=== PATIENT | female | born 1960 | race Caucasian/White ===

== ENCOUNTER → 2017-10-18 | Outpatient (CLI) | payer BC ==
[~2017-10-18] MED LIST: ADJUSTABLE COMM1 MIS; AMLO10TA2 PO; AMLO5TAB22 PO; BENA25TA8 PO; COZA50TA PO; CPMMACHINE; DIPH25TA31 PO; EMPA1TAB PO; EXEN1INJ SQ; FENO160T PO; GABA400C5 PO; GLIM2TAB PO; GLIM4TAB PO; GLUCTAB PO; HYDR-2768 PO; HYDR25TA5 PO; K-TA10TA5 PO; LEVO50TA4 PO; LOSA100T PO; METF1000 PO; POTA10TA2 PO; PRED50TA PO; RANI150 PO; SIMV10TA PO; SIMV20 PO; TRAD5TAB PO; VITA2000 PO; WALKER WHEELS/F1 MIS
== END ==
LOC: CPRE 09:44
PROVIDERS: ATTEND Orthopaedic Surgery
DX: Z01.818 Encounter for other preprocedural examination (principal); M17.12 Unilateral primary osteoarthritis, left knee

== ENCOUNTER 2017-11-03 05:30 | Inpatient (IN) | payer BC ==
[~2017-11-03] VITALS: Ht 162.6 cm; Wt 102.0 kg
[~2017-11-03 05:30] MED LIST changes: -ADJUSTABLE COMM1 MIS; -AMLO5TAB22 PO; -BENA25TA8 PO; -COZA50TA PO; -CPMMACHINE; -GLIM2TAB PO; -GLUCTAB PO; -HYDR-2768 PO; -K-TA10TA5 PO; -PRED50TA PO; -RANI150 PO; -SIMV20 PO; -TRAD5TAB PO; -WALKER WHEELS/F1 MIS
[2017-11-03] MEDS ORDERED: CHLORHEXIDINE GLUCONATE 4% SOLN 120 ML BTL TOPICAL SCH (06:00)
[2017-11-03] MEDS ORDERED: TRANEXAMIC ACID INJ 1,020 MG in SODIUM CHLORIDE 0.9% INJ 100 ML IV SCH ×2 (06:00→12:00)
[2017-11-03] MEDS ORDERED: ROPIVACAINE PERI-ARTICULAR INJECTION. P-ARTICULR SCH ×5 (06:00)
[2017-11-03] MEDS ORDERED: DEXAMETHASONE SOD PHOS 20 MG/5 ML VIAL IV PUSH ONE (06:00)
[2017-11-03] MEDS ORDERED: POVIDONE IODINE 7.5% SCRUB 118 ML BOTTLE TOPICAL SCH (06:00)
[2017-11-03] MEDS ORDERED: SODIUM CHLORID 0.9% 500 ML IV PRN (06:15)
[2017-11-03] MEDS ORDERED: METOPROLOL TARTRATE 25 MG TAB PO PRN (06:15)
[2017-11-03] MEDS ORDERED: POVIDONE IODINE 5% (ANTISEPSIS KIT) 4 APPLICATIONS EACH NARE PRN (06:15)
[2017-11-03] MEDS ORDERED: LACTATED RINGER'S 1000 ML IV PRN (06:15)
[2017-11-03] MEDS ORDERED: INSULIN HUMAN REGULAR 1,000 UNITS/10 ML VIAL SQ PRN (06:15)
[2017-11-03] MEDS ORDERED: CHLORHEXIDINE GLUCONATE 2 % 1 PACK (2 CLOTHS) TOPICAL PRN (06:15)
[2017-11-03] MEDS ORDERED: ceFAZolin 2 GM PREMIX 50 ML ONE (06:39)
[2017-11-03] MEDS ORDERED: PROPOFOL 500 MG/50 ML INJ 0 ML ONE (06:43)
--- NOTE | 2017-11-03 07:04 | HHI.DCPOC ---
Discharge Care Plan Diagnosis: (1) Primary localized osteoarthrosis, lower leg (2) Status post total knee replacement, left Your Health Problems Are: Difficulty with ADL Goals to Promote Your Health * To prevent worsening of your condition and complications * To maintain your health at the optimal level Directions to Meet Your Goals Take your medications as prescribed Follow your dietary instruction Follow activity as directed Keep your appointments as scheduled Take your immunizations and boosters as scheduled If your symptoms worsen call your PCP, if no PCP go to Urgent Care Center or Emergency Room Smoking is Dangerous to Your Health. Avoid second hand smoke Call the 24-hour hour crisis hotline for domestic abuse at Tim Mathur Nov 03, 2017 07:04
--- NOTE | 2017-11-03 07:06 | HHI.FF ---
Face to Face Verification Diagnosis: (1) Primary localized osteoarthrosis, lower leg (2) Status post total knee replacement, left Physical Therapy Gait training, Transfer training, bed to chair Knee: Total knee Left LE Weight Bearing: WB as tolerated Left LE Range of Motion: Active ROM Nursing Nursing: Jus myers Dressing Changes: Do not change dressing Additional Instructions First dressing change in the office. I have seen patient Marleni Haines on 11/03/17. My clinical findings support the need for the requested home health care services because: Limited ability to care for self High risk of falls I certify that my clinical findings support that this patient is homebound because: Post-op weakness Unsteady gait/balance Tim Mathur Nov 03, 2017 07:06
[2017-11-03] MEDS ORDERED: CPMMACHINE (07:07)
[2017-11-03] MEDS ORDERED: ADJUSTABLE COMM1 MIS (07:07)
[2017-11-03] MEDS ORDERED: WALKER WHEELS/F1 MIS (07:07)
[2017-11-03] MEDS ORDERED: ceFAZolin 2 GM PREMIX 50 ML IV SCH (07:15)
[2017-11-03] MEDS ORDERED: PROPOFOL 200 MG/20 ML AMP ONE (07:24)
[2017-11-03] MEDS ORDERED: BUPIVACAINE PF 0.75% DEX-WATER INJ 2 ML AMP ONE (07:46)
[2017-11-03] MEDS ORDERED: GENTAMICIN SULFATE 80 MG/2 ML VIAL ONE (08:30)
[2017-11-03] MEDS: VANCOMYCIN 1 GM/200 ML PREMIX IV SCH ×2 (08:50→19:22)
[2017-11-03] MEDS ORDERED: BUPIVACAINE LIPOSOME PF 1.3% 20 ML VIAL ONE (09:59)
[2017-11-03] MEDS ORDERED: BUPIVACAINE HCL PF 0.5% 30 ML VIAL ONE (10:04)
[2017-11-03] MEDS ORDERED: oxyCODONE/ACETAMINOPHEN 5 MG/325 MG TAB PO PRN ×3 (10:15→20:30)
[2017-11-03] MEDS ORDERED: MAGNESIUM HYDROXIDE SUSP 30 ML CUP PO PRN (10:15)
[2017-11-03] MEDS ORDERED: ALUMINUM/MAGNESIUM/SIMETH 30 ML CUP PO PRN (10:15)
[2017-11-03] MEDS ORDERED: MORPHINE SULFATE 4 MG/ML INJ IV PUSH PRN (10:15)
[2017-11-03] MEDS ORDERED: diphenhydrAMINE HCL 50 MG/ML VIAL IV PUSH PRN (10:15)
[2017-11-03] MEDS ORDERED: NALOXONE HCL 0.4 MG/ML AMP IV PUSH PRN (10:15)
[2017-11-03] MEDS ORDERED: BISACODYL 10 MG SUPP RECTAL PRN (10:15)
--- NOTE | 2017-11-03 10:18 | PD.OP ---
cc: Peter Crawford MD Operative Report Date of Surgery: Nov 03, 2017 Preoperative Diagnosis: Left knee severe osteoarthritis Postoperative Diagnosis: Same Procedure: Left total knee arthroplasty Anesthesia: Spinal and adductor canal block Surgeon: Peter Crawford Business Development Recruiter(s): DONELL Gage The surgical procedure was assisted by my Advanced Registered Nurse Practitioner. My MANAGER PSYCHOLOGY presence was necessary throughout this case for the manipulation and positioning of the surgical extremity. My MANAGER PSYCHOLOGY was assisting me throughout the duration of this procedure. The skill set of an Advance Registered Nurse Practitioner was medically necessary to complete this procedure. During the surgical case, the assembler surgical garment was working at the back table and the Advance Registered Nurse Practitioner was directly assisting me. Operation and Findings: IMPLANTS: DePuy Attune: Patella: size 32. Femur, posterior stabilized size 5. Tibia, rotating platform size 4. Tibial insert, rotating platform, posterior stabilized size 5 mm thickness. ESTIMATED BLOOD LOSS: 75 cc TOURNIQUET TIME: 39 minutes at 250 mmHg pressure. JUSTIFICATION FOR PROCEDURE: The patient has end-stage osteoarthritis to the knee. There is an attached conservative measures pathway form in the chart that describes the nonoperative measures that were undertaken prior to consideration of surgical management. The patient understood the risks and benefits of surgical management. See my office notes for further details PROCEDURE: The patient was brought back to the operative theatre. Adequate anesthesia was obtained. The patient received intravenous vancomycin and Ancef. The patient was given a test dose of the Ancef by the anesthesiologist without reaction. The lower extremity was prepped and draped in the usual sterile fashion.The leg was exsanguinated, the tourniquet was raised. A standard anterior incision was performed followed by medial parapatellar arthrotomy was performed. End-stage arthritis was identified. Osteotomy of the patella was performed. We drilled holes for the patella. We trialed the patella component. We placed an intramedullary guide into the distal femur. We ultimately resected 11 mm off of the distal femur in 5 degrees of valgus. The remnants of the ACL and PCL were resected. Osteotomy of the proximal tibia was performed, resecting 5 mm off of the medial side. This was done with 3 degrees of posterior slope using an extramedullary guide. The distal end of the guide was placed in the mid aspect of the ankle. The femur was sized, and four chamfer cuts were completed in 3 of external rotation. We then cut the central box in the distal femur to replace the PCL. We resected the remnants of the menisci and removed osteophytes off of the femur and tibia. We then trialed the knee. We punched the tibia for the keel, and then used standard technique to cement in components. Excess cement was removed. We trialed the knee again and the final polyethylene thickness was chosen to provide extension to 0 degrees, and flexion of 140 degrees to gravity. The ligaments were appropriately balanced. Lateral release was necessary to obtain excellent patellofemoral tracking. The tourniquet was released and adequate hemostasis was obtained. An intra- articular injection of a ropivacaine cocktail was injected. The posterior knee was inspected for excess cement, which was removed. The final polyethylene was put into position after thorough irrigation. We then closed deep fascia with a #2 Stratafix followed by skin with 2-0 Vicryl followed by Dermabond dressing. Postop plan is to weight-bear as tolerated. DVT prophylaxis will be performed with SCDs, YASMEEN alejandro, early mobilization, and Lovenox followed by aspirin. Peter Crawford MD Nov 03, 2017 10:18
[2017-11-03] MEDS: SODIUM CHLOR 0.9% 1000 ML INJ 1,000 ML IV SCH ×2 (11:00→20:14)
[2017-11-03] MEDS ORDERED: Post-op Orders (for Pharmacy) XX ONE (11:00)
[2017-11-03] MEDS ORDERED: DO NOT ADM ANY ANTICOAGULANT DRUGS PRN (11:00)
[2017-11-03] MEDS ORDERED: MIDAZOLAM HCL 2 MG/2 ML VIAL ONE (11:08)
[2017-11-03] MEDS ORDERED: *MEPERIDINE 25 MG INJ VIAL PERIprocedural Use ONLY ONE (11:17)
[2017-11-03] MEDS ORDERED: ONDANSETRON ODT 4 MG TAB SL PRN (11:30)
--- NOTE | 2017-11-03 11:36 | RADRPT ---
EXAM DATE: 11/03/2017 11:32 AM EDT AGE/SEX: 57 years / Female INDICATIONS: Post-op left total knee replacement. CLINICAL DATA: This is the patient's initial encounter. Patient reports that signs and symptoms have been present for 1 day and indicates a pain score of 0/10. MEDICAL/SURGICAL HISTORY: None. None. COMPARISON: No prior exams available for comparison. FINDINGS: The patient is post left knee arthroplasty. Orthopedic hardware is in excellent position. Alignment i s good. CONCLUSION: Orthopedic hardware in excellent position. Electronically signed by: Tim Alexandra MD 11/03/2017 11:35 AM EDT
[2017-11-03] MEDS: GABAPENTIN 400 MG CAP PO SCH ×2 (13:00→17:55)
--- NOTE | 2017-11-03 13:11 | PD.CONS ---
HPI Service [facility] Consult Requested By Dr. Crawford Reason for Consult Opinion recommendation patient's diabetes mellitus, hypertension and hyperlipidemia Primary Care Physician Dwayne Ritchie MD Diagnoses: History of Present Illness 57-year-old white female with a history of hypothyroidism, hypertension, diabetes mellitus who has had long-term history of left knee pain despite conservative treatment electively underwent a left total knee arthroplasty with orthopedic surgery Dr. Crawford today. She states her blood sugars are usually adequately controlled at home. She also states her blood pressures adequately controlled at home on medication. She denies a history of constipation. She denies a history of blood in the stools or black tarry stools. She states that there is some left knee discomfort at this time otherwise no other complaints. Review of Systems Constitutional: DENIES: Fatigue, Fever, Chills, Change in appetite Endocrine: DENIES: Heat/cold intolerance Eyes: DENIES: Blurred vision, Eye pain, Vision loss Ears, nose, mouth, throat: DENIES: Hearing loss, Nasal discharge, Throat pain, Ear Pain, Sinus Pain Respiratory: DENIES: Cough, Shortness of breath Cardiovascular: DENIES: Chest pain, Palpitations, Dyspnea on Exertion, Lower Extremity Edema Gastrointestinal: DENIES: Abdominal pain, Black stools, Bloody stools, Constipation, Diarrhea, Nausea, Vomiting Genitourinary: DENIES: Dysuria Musculoskeletal: COMPLAINS OF: Joint pain (Left knee pain as described), DENIES : Muscle aches, Stiffness Integumentary: DENIES: Rash Hematologic/lymphatic: DENIES: Bruising, Lymphadenopathy Immunologic/allergic: DENIES: Eczema Neurologic: DENIES: Headache, Localized weakness, Paresthesias Psychiatric: DENIES: Anxiety, Depression, Suicidal Ideation Past Family Social History Allergies: Coded Allergies: hydrocodone (Verified Allergy, Severe, Swelling, 11/03/17) penicillin G (Verified Allergy, Intermediate, Rash, 11/03/17) Past Medical History Hypothyroidism Hypertension Diabetes mellitus type 2 Neuropathy Past Surgical History Hysterectomy Appendectomy Left meniscus surgery Reported Medications Acetaminophen/diphenhydramine 1 capsule p.o. nightly Abdomen little pain 10 mg p.o. daily Vitamin D3 2000 units p.o. daily Exenatide 2 mg SQ Wednesday sq. Wednesday injection Fenofibrate 160 mg p.o. daily Gabapentin 400 mg p.o. 3 times daily Glimepiride 4 mg p.o. twice daily HCTZ 25 mg p.o. daily Levothyroxine 50 MCG's p.o. daily Losartan 100 mg p.o. daily Metformin 1000 mg p.o. twice daily PC Potassium chloride 10 mEq p.o. twice daily Simvastatin 10 mg p.o. nightly Family History Noncontributory Social History Does not smoke cigarettes, does not drink alcohol Physical Exam Vital Signs Vital Signs Date Time Temp Pulse Resp B/P (MAP) Pulse Ox O2 Delivery O2 Flow Rate FiO2 11/03/17 10:58 97.8 80 16 120/60 (80) 95 Room Air 11/03/17 06:25 99.1 74 20 143/60 (87) 97 Physical Exam GENERAL: This is a well-nourished, well-developed patient, in no apparent distress. SKIN: No rashes, ecchymoses or lesions. Cool and dry. HEAD: Atraumatic. Normocephalic. No temporal or scalp tenderness. EYES: Pupils equal round and reactive. Extraocular motions intact. No scleral icterus. No injection or drainage. ENT: Nose without bleeding, purulent drainage or septal hematoma. NECK: Trachea midline. No JVD or lymphadenopathy. Supple, nontender, no meningeal signs. CARDIOVASCULAR: Regular rate and rhythm RESPIRATORY: Clear to auscultation. Breath sounds equal bilaterally. No wheezes , rales, or rhonchi. GASTROINTESTINAL: Abdomen soft, non-tender, nondistended. No hepato-splenomegaly , or palpable masses. No guarding. MUSCULOSKELETAL: Extremities without clubbing, cyanosis, or edema. Left knee bandage clean dry intact on CPM machine NEUROLOGICAL: Awake and alert to person place time situation. Cranial nerves II through XII intact. Motor and sensory grossly within normal limits. Normal speech. Assessment and Plan Assessment and Plan 1. Status post left total knee arthroplasty continue postoperative care, pain control, physical therapy per orthopedic surgery, Dr. Crawford. 2. Hypothyroidism- Resume levothyroxine 3. Hypertension, chronic essential resume home amlodipine and losartan. 4. DVT prophylaxis risks and benefits of anticoagulation discussed with patient today. Initiate Lovenox per orthopedic surgery 5. Diabetes mellitus type 2- blood sugar monitoring with sliding scale insulin , resume metformin and glimepiride, further regulations based on blood sugar trends 6. History of diabetic Neuropathy resume gabapentin Thank you for this consultation Delia Corley MD Nov 03, 2017 13:11
[2017-11-03] MEDS ORDERED: GLUCAGON 1 MG/ML VIAL OTHER PRN (13:15)
[2017-11-03] MEDS ORDERED: ENALAPRILAT 1.25 MG/ML VIAL IV PUSH PRN (13:15)
[2017-11-03] MEDS ORDERED: DEXTROSE 50% IN WATER 50 ML VIAL(D50) IV PUSH PRN (13:15)
[2017-11-03] MEDS ORDERED: *morphine SULFATE 4 MG/ML PERIprocedure ONLY ONE (13:32)
[2017-11-03] MEDS ORDERED: PROPOFOL 200 MG/20 ML AMP IV ONE (13:32)
[2017-11-03] MEDS ORDERED: DEXAMETHASONE SOD PHOS 4 MG/ML VIAL IV ONE (13:32)
[2017-11-03] MEDS ORDERED: LIDOCAINE HCL 1% PF 5 ML SYRINGE OTHER ONE (13:32)
[2017-11-03] MEDS: INSULIN ASPART SUPPLEMENTAL SCALE SQ SCH ×2 (17:00→21:00)
[2017-11-03 17:15] VITALS: BP 108/59; PULSE 86; RESP 18; TEMP 97.7; O2SAT 92
[2017-11-03] MEDS: GLIMEPIRIDE 4 MG TAB PO SCH (17:55)
[2017-11-03] MEDS: metFORMIN HCL 500 MG TAB PO SCH (17:55)
[2017-11-03 19:52] VITALS: BP 123/63; PULSE 82; RESP 18; TEMP 98.1; O2SAT 92
[2017-11-03] MEDS: oxyCODONE/ACETAMINOPHEN 10 MG/325 MG TAB PO PRN (21:45)
[2017-11-03] MEDS: ZOLPIDEM TARTRATE 5 MG TAB PO PRN (21:46)
[2017-11-03] MEDS: POTASSIUM CHLORIDE 10 MEQ CONTROLLED RELEASE TAB PO SCH (21:46)
[2017-11-03] MEDS: PRAVASTATIN SOD 20 MG TAB PO SCH (21:46)
[2017-11-03 23:25] VITALS: BP 127/58; PULSE 83; RESP 18; TEMP 98.2; O2SAT 92
[2017-11-04] MEDS: oxyCODONE/ACETAMINOPHEN 10 MG/325 MG TAB PO PRN ×5 (02:35→23:44)
[2017-11-04 04:09] VITALS: BP 107/57; PULSE 74; RESP 18; TEMP 97.6; O2SAT 93
[2017-11-04] MEDS: SODIUM CHLOR 0.9% 1000 ML INJ 1,000 ML IV SCH ×2 (05:32→16:14)
[2017-11-04] MEDS: LEVOTHYROXINE SODIUM 50 MCG TAB PO SCH (05:36)
[2017-11-04] MEDS: VANCOMYCIN 1 GM/200 ML PREMIX IV SCH (06:40)
[2017-11-04 07:24] LABS: HEMATOCRIT 31.9 % (35.0-46.0); HEMOGLOBIN 10.5 GM/DL (11.6-15.3); MEAN CORPUSCULAR HEMOGLOBIN 27.9 PG (27.0-34.0); MEAN CORPUSCULAR HGB CONC 32.9 % (32.0-36.0); MEAN PLATELET VOLUME 10.6 FL (7.0-11.0); PLATELET COUNT 358 TH/MM3 (150-450); RED BLOOD COUNT 3.75 MIL/MM3 (4.00-5.30); RED CELL DISTRIBUTION WIDTH 13.4 % (11.6-17.2); WHITE BLOOD COUNT 11.2 TH/MM3 (4.0-11.0)
[2017-11-04] MEDS ORDERED: DEXAMETHASONE SOD PHOS 20 MG/5 ML VIAL IV ONE (07:45)
[2017-11-04 08:00] VITALS: BP 104/57; PULSE 69; RESP 18; TEMP 97.8; O2SAT 95
[2017-11-04] MEDS: GLIMEPIRIDE 4 MG TAB PO SCH ×2 (08:34→18:25)
[2017-11-04] MEDS: metFORMIN HCL 500 MG TAB PO SCH ×2 (08:35→18:22)
[2017-11-04] MEDS: FENOFIBRATE 145 MG TAB PO SCH (08:35)
[2017-11-04] MEDS: GABAPENTIN 400 MG CAP PO SCH ×3 (08:35→18:23)
[2017-11-04] MEDS: POTASSIUM CHLORIDE 10 MEQ CONTROLLED RELEASE TAB PO SCH ×2 (08:35→20:45)
[2017-11-04] MEDS: INSULIN ASPART SUPPLEMENTAL SCALE SQ SCH ×4 (08:44→20:45)
[2017-11-04] MEDS: HYDROCHLOROTHIAZIDE 25 MG TAB PO SCH (09:00)
[2017-11-04] MEDS: LOSARTAN 50 MG TAB PO SCH (09:00)
[2017-11-04] MEDS: ENOXAPARIN SODIUM 40 MG/0.4 ML SYRINGE SQ SCH (09:28)
--- NOTE | 2017-11-04 09:48 | HHI.PR ---
Subjective Remarks Pain controlled. No complaints overnight. Objective Vitals Vital Signs Date Time Temp Pulse Resp B/P (MAP) Pulse Ox O2 Delivery O2 Flow Rate FiO2 11/04/17 04:09 97.6 74 18 107/57 (74) 93 11/04/17 03:05 18 11/04/17 00:17 Room Air 11/03/17 23:25 98.2 83 18 127/58 (81) 92 11/03/17 19:52 98.1 82 18 123/63 (83) 92 11/03/17 17:15 97.7 86 18 108/59 (75) 92 11/03/17 16:30 83 18 106/60 (75) 92 Room Air 11/03/17 16:00 75 18 109/60 (76) 92 Room Air 11/03/17 15:00 77 18 122/58 (79) 92 Room Air 11/03/17 14:00 75 18 126/58 (80) 92 Room Air 11/03/17 13:00 77 18 118/55 (76) 92 Room Air 11/03/17 12:00 76 18 137/60 (85) 92 Room Air 11/03/17 11:45 75 18 113/58 (76) 93 Room Air 11/03/17 11:30 74 18 117/56 (76) 93 Room Air 11/03/17 11:15 76 16 112/60 (77) 93 Room Air 11/03/17 10:58 97.8 80 16 120/60 (80) 95 Room Air I/O 11/03/17 11/03/17 11/03/17 11/04/17 11/04/17 11/04/17 07:00 15:00 23:00 07:00 15:00 23:00 Intake Total 900 ml 600 ml 460 ml Output Total 25 ml Balance 875 ml 600 ml 460 ml Intake Oral 500 ml 360 ml IV Total 100 ml 100 ml Other 900 ml Output Urine Total 0 ml Estimated Blood Loss 25 ml # Voids 1 3 # Bowel Movements 0 Result Diagram: 11/04/17 0600 Objective Remarks GENERAL: This is a well-nourished, well-developed patient, in no apparent distress. CARDIOVASCULAR: Regular rate and rhythm RESPIRATORY: Clear to auscultation. Breath sounds equal bilaterally. No wheezes , rales, or rhonchi. MUSCULOSKELETAL: Left knee bandage clean dry intact NEURO: Alert & Oriented x4 to person, place, time, situation. Moves all ext x4 A/P Assessment and Plan 1. Status post operative day #1 left total knee arthroplasty continue postoperative care, pain control, physical therapy per orthopedic surgery, Dr. Crawford. 2. Hypothyroidism- Resume levothyroxine 3. Hypertension, chronic essential, overall controlled with home amlodipine and losartan. 4. DVT prophylaxis risks and benefits of anticoagulation discussed with patient today. Initiate Lovenox per orthopedic surgery 5. Diabetes mellitus type 2, uncontrolled- blood sugar monitoring with sliding scale insulin, resume metformin and glimepiride, will add basal insulin Levemir today 6. History of diabetic Neuropathy resume gabapentin Delia Corley MD Nov 04, 2017 09:48
[2017-11-04 12:00] VITALS: BP 115/57; PULSE 73; RESP 18; TEMP 97.9; O2SAT 95
[2017-11-04 16:00] VITALS: BP 111/58; PULSE 81; RESP 18; TEMP 98.7; O2SAT 97
--- NOTE | 2017-11-04 18:18 | PD.ORT.PN ---
Subjective Post Op Day #: 1 Subjective Remarks The patient is resting comfortably in bed with minimal pain to the left knee. The patient states she would like to stay an additional night as she is uncomfortable with discharge secondary to weakness and some hypotension. Objective Vitals Vital Signs Date Time Temp Pulse Resp B/P (MAP) Pulse Ox O2 Delivery O2 Flow Rate FiO2 11/04/17 12:00 97.9 73 18 115/57 (76) 95 11/04/17 08:00 97.8 69 18 104/57 (73) 95 11/04/17 07:30 Room Air 11/04/17 04:09 97.6 74 18 107/57 (74) 93 11/04/17 03:05 18 11/04/17 00:17 Room Air 11/03/17 23:25 98.2 83 18 127/58 (81) 92 11/03/17 19:52 98.1 82 18 123/63 (83) 92 I/O 11/03/17 11/03/17 11/03/17 11/04/17 11/04/17 11/04/17 07:00 15:00 23:00 07:00 15:00 23:00 Intake Total 900 ml 600 ml 460 ml Output Total 25 ml Balance 875 ml 600 ml 460 ml Intake Oral 500 ml 360 ml IV Total 100 ml 100 ml Other 900 ml Output Urine Total 0 ml Estimated Blood Loss 25 ml # Voids 1 3 # Bowel Movements 0 Result Diagram: 11/04/17 0600 Procedures Left TKA Objective Remarks Dressing is C/D/I. EHL/TA/G intact. 2+ pedal pulse. Calf is soft and nontender. + SILT distally. Assessment & Plan Ortho Post Op Day #: 1 Problem List: Assessment and Plan POD #1: Left TKA 1. WBAT LLE 2. Lovenox followed by ASA for DVT prophylaxis 3. Ice to the left knee PRN 4. Stable per ortho for discharge home with home health on Wednesday. 5. F/U in the office as previously scheduled with Dr. Crawford or DONELL Daniels. Tim Mathur Nov 04, 2017 18:18
[2017-11-04] MEDS: VANCOMYCIN 1,000 MG/NS 250 ML IV SCH ×2 (18:23)
[2017-11-04 20:00] VITALS: BP 122/58; PULSE 75; RESP 16; TEMP 98.3; O2SAT 95
[2017-11-04] MEDS: DOCUSATE SODIUM 100 MG CAP PO SCH (20:45)
[2017-11-04] MEDS: ZOLPIDEM TARTRATE 5 MG TAB PO PRN (20:45)
[2017-11-04] MEDS: PRAVASTATIN SOD 20 MG TAB PO SCH (20:45)
[2017-11-04] MEDS: MULTIVITAMINS/MINERALS THERAPEUTIC TAB PO SCH (20:45)
[2017-11-05] VITALS: BP 126/61; PULSE 75; RESP 19; TEMP 97.3; O2SAT 95
[2017-11-05] MEDS: SODIUM CHLOR 0.9% 1000 ML INJ 1,000 ML IV SCH (02:14)
[2017-11-05] MEDS: oxyCODONE/ACETAMINOPHEN 10 MG/325 MG TAB PO PRN ×2 (03:40→08:40)
[2017-11-05] MEDS: LEVOTHYROXINE SODIUM 50 MCG TAB PO SCH (05:44)
[2017-11-05] MEDS: VANCOMYCIN 1,000 MG/NS 250 ML IV SCH ×2 (05:45)
[2017-11-05 08:00] VITALS: BP 132/61; PULSE 76; RESP 16; TEMP 98.2; O2SAT 92
[2017-11-05] MEDS: INSULIN ASPART SUPPLEMENTAL SCALE SQ SCH (08:00)
[2017-11-05 08:30] LABS: HEMATOCRIT 29.8 % (35.0-46.0); HEMOGLOBIN 9.9 GM/DL (11.6-15.3); MEAN CELL VOLUME 84.6 FL (80.0-100.0); MEAN CORPUSCULAR HEMOGLOBIN 28.1 PG (27.0-34.0); MEAN CORPUSCULAR HGB CONC 33.2 % (32.0-36.0); MEAN PLATELET VOLUME 10.5 FL (7.0-11.0); PLATELET COUNT 327 TH/MM3 (150-450); RED BLOOD COUNT 3.52 MIL/MM3 (4.00-5.30); RED CELL DISTRIBUTION WIDTH 13.6 % (11.6-17.2); WHITE BLOOD COUNT 11.1 TH/MM3 (4.0-11.0)
[2017-11-05] MEDS: POTASSIUM CHLORIDE 10 MEQ CONTROLLED RELEASE TAB PO SCH (08:39)
[2017-11-05] MEDS: HYDROCHLOROTHIAZIDE 25 MG TAB PO SCH (08:39)
[2017-11-05] MEDS: GABAPENTIN 400 MG CAP PO SCH (08:39)
[2017-11-05] MEDS: LOSARTAN 50 MG TAB PO SCH (08:39)
[2017-11-05] MEDS: MULTIVITAMINS/MINERALS THERAPEUTIC TAB PO SCH (08:40)
[2017-11-05] MEDS: GLIMEPIRIDE 4 MG TAB PO SCH (08:40)
[2017-11-05] MEDS: metFORMIN HCL 500 MG TAB PO SCH (08:40)
[2017-11-05] MEDS: DOCUSATE SODIUM 100 MG CAP PO SCH (08:40)
[2017-11-05] MEDS: FENOFIBRATE 145 MG TAB PO SCH (08:40)
--- NOTE | 2017-11-05 09:51 | HHI.PR ---
Subjective Remarks Pain control. No concerns at this time. Objective Vitals Vital Signs Date Time Temp Pulse Resp B/P (MAP) Pulse Ox O2 Delivery O2 Flow Rate FiO2 11/05/17 08:00 98.2 76 16 132/61 (84) 92 11/05/17 04:26 18 11/05/17 00:00 97.3 75 19 126/61 (82) 95 11/04/17 22:56 Room Air 11/04/17 20:00 98.3 75 16 122/58 (79) 95 11/04/17 16:00 98.7 81 18 111/58 (75) 97 11/04/17 12:00 97.9 73 18 115/57 (76) 95 I/O 11/04/17 11/04/17 11/04/17 11/05/17 11/05/17 11/05/17 07:00 15:00 23:00 07:00 15:00 23:00 Intake Total 460 ml 250 ml 220 ml Balance 460 ml 250 ml 220 ml Intake Oral 360 ml 220 ml IV Total 100 ml 250 ml # Voids 3 5 # Bowel Movements 0 Result Diagram: 11/05/17 0646 Other Results Item Value Date Time Bedside Blood Glucose 92 mg/dl 11/05/17 0800 Bedside Blood Glucose 305 mg/dl 11/04/17 2100 Bedside Blood Glucose 224 mg/dl 11/04/17 1700 Objective Remarks GENERAL: This is a well-nourished, well-developed patient, in no apparent distress. CARDIOVASCULAR: Regular rate and rhythm RESPIRATORY: Clear to auscultation. Breath sounds equal bilaterally. No wheezes , rales, or rhonchi. MUSCULOSKELETAL: Left knee bandage clean dry intact NEURO: Alert & Oriented x4 to person, place, time, situation. Moves all ext x4 A/P Assessment and Plan 1. Status post operative day #2 left total knee arthroplasty continue postoperative care, pain control, physical therapy per orthopedic surgery, Dr. Crawford. 2. Hypothyroidism- Resume levothyroxine 3. Hypertension, chronic essential, overall controlled with home amlodipine and losartan. 4. DVT prophylaxis risks and benefits of anticoagulation discussed with patient today. Initiate Lovenox per orthopedic surgery 5. Diabetes mellitus type 2, uncontrolled- blood sugar monitoring with sliding scale insulin, resume metformin and glimepiride, will add basal insulin Levemir yesterday evening which improved fasting glucose this morning 6. History of diabetic Neuropathy resume gabapentin Discharge Planning Discharge to home with home health care per orthopedic surgery Delia Corley MD Nov 05, 2017 09:51
[2017-11-05] MEDS: ENOXAPARIN SODIUM 40 MG/0.4 ML SYRINGE SQ SCH (10:25)
[2017-11-05 12:00] VITALS: BP 110/53; PULSE 71; RESP 17; TEMP 97.7; O2SAT 92
--- NOTE | 2017-11-05 17:02 | PD.ORT.PN ---
Subjective Post Op Day #: 2 Subjective Remarks The patient is OOB walking from bathroom to her bed with standby assistance. Patient reports minimal pain and states she is feeling better today. Patient requesting to go home with home health. Objective Vitals Vital Signs Date Time Temp Pulse Resp B/P (MAP) Pulse Ox O2 Delivery O2 Flow Rate FiO2 11/05/17 12:00 97.7 71 17 110/53 (72) 92 11/05/17 08:00 98.2 76 16 132/61 (84) 92 11/05/17 04:26 18 11/05/17 00:00 97.3 75 19 126/61 (82) 95 11/04/17 22:56 Room Air 11/04/17 20:00 98.3 75 16 122/58 (79) 95 I/O 11/04/17 11/04/17 11/04/17 11/05/17 11/05/17 11/05/17 07:00 15:00 23:00 07:00 15:00 23:00 Intake Total 460 ml 250 ml 220 ml Balance 460 ml 250 ml 220 ml Intake Oral 360 ml 220 ml IV Total 100 ml 250 ml # Voids 3 5 # Bowel Movements 0 Result Diagram: 11/05/17 0646 Procedures Left TKA Objective Remarks Dressing is C/D/I. EHL/TA/G intact. 2+ pedal pulse. Calf is soft and nontender. + SILT distally. Assessment & Plan Ortho Post Op Day #: 2 Problem List: Assessment and Plan POD #2: Left TKA 1. WBAT LLE 2. Lovenox followed by ASA for DVT prophylaxis 3. Ice to the left knee PRN 4. Stable per ortho for discharge home with home health today. 5. F/U in the office as previously scheduled with Dr. Crawford or DONELL Daniels. Tim Mathur Nov 05, 2017 17:02
--- NOTE | 2017-11-05 17:08 | HHI.DS ---
Discharge Summary Admission Date Nov 03, 2017 at 05:30 Discharge Date: Nov 05, 2017 Admitting Diagnosis Primary localized OA, lower leg Status post total knee replacement, right Diagnosis: (1) Primary localized osteoarthrosis, lower leg Diagnosis: Principal ICD Codes: M17.10 - Unilateral primary osteoarthritis, unspecified knee (2) Status post total knee replacement, left Diagnosis: Principal ICD Codes: Z96.652 - Presence of left artificial knee joint Procedures Left TKA Brief History This is a 57 year old female patient with severe OA of the left knee. CBC/BMP: 11/05/17 0646 Significant Findings Laboratory Tests Test 11/04/17 06:00 11/05/17 06:46 White Blood Count 11.2 TH/MM3 (4.0-11.0) 11.1 TH/MM3 (4.0-11.0) Red Blood Count 3.75 MIL/MM3 (4.00-5.30) 3.52 MIL/MM3 (4.00-5.30) Hemoglobin 10.5 GM/DL (11.6-15.3) 9.9 GM/DL (11.6-15.3) Hematocrit 31.9 % (35.0-46.0) 29.8 % (35.0-46.0) PE at Discharge Dressing is C/D/I. EHL/TA/G intact. 2+ pedal pulse. Calf is soft and nontender. + SILT distally. Hospital Course The patient was admitted to the hospital for severe OA of the left knee to have a left TKA. The patient's surgery went well without complications. The patient is WBAT. The patient is on a diabetic diet. The patient was placed on Lovenox followed by ASA for DVT prophylaxis. The patient was discharged home with home health and will f/u in the office as previously scheduled with Dr. Crawford or DONELL Daniels. Pt Condition on Discharge: Stable Discharge Disposition: Disch w/ Home Health Serv Discharge Instructions Diet Instructions: Diabetic Diet Activities You Can Perform: Weight Bearing as Eric Activities to Avoid: Strenuous Activity New Medications: Adjustable Commode 3-in-1 (Adjustable Commode 3-in-1) 1 Mis Mis EA .XX DIRECTED, #1 CPM-Continuous Passive Motion Machine (CPM-Continuous Passive Motion Machine) 1 Ea Device EA .XX DIRECTED, #1 0 Refills Walker with Front Wheels (Walker with Front Wheels) 1 Mis Mis EA .XX DIRECTED, #1 0 Refills Continued Medications: Amlodipine (Amlodipine) 10 Mg Tab 10 MG PO DAILY for Blood Pressure Management, #30 TAB 0 Refills Cholecalciferol (Vitamin D3) 2,000 Unit Cap 2000 UNITS PO DAILY for Nutritional Supplement, #1 BOTTLE 0 Refills Exenatide Pen Inj (Bydureon Pen Inj) 2 Mg Pfpen 2 MG SQ WEDNESDAY for Blood Sugar Management, #4 INJECTION 0 Refills Fenofibrate (Fenofibrate) 160 Mg Tab 160 MG PO DAILY, #30 TAB 0 Refills Gabapentin (Gabapentin) 400 Mg Cap 400 CAP PO TID, #30 CAP 0 Refills Glimepiride (Glimepiride) 4 Mg Tab 4 MG PO BIDAC for Blood Sugar Management, #60 TAB 0 Refills Hydrochlorothiazide (Hydrochlorothiazide) 25 Mg Tab 25 MG PO DAILY, #30 TAB 0 Refills Levothyroxine (Levothyroxine) 50 Mcg Tab 50 MCG PO DAILY for Thyroid, #30 TAB 0 Refills Losartan (Losartan) 100 Mg Tab 100 MG PO DAILY for Blood Pressure Management, #30 TAB 0 Refills Metformin (Metformin) 1,000 Mg Tab 1000 MG PO BIDPC for Blood Sugar Management, #60 TAB 0 Refills Potassium Chloride ER (Potassium Chloride ER) 10 Meq Tab 10 MEQ PO BID for Electrolyte Replacement, #60 TAB 0 Refills Simvastatin (Simvastatin) 10 Mg Tab 10 MG PO HS for Cholesterol Management, #30 TAB 0 Refills Discontinued Medications: Acetaminophen/Diphenhydramine (Acetaminophen Pm Caplet) 500 Mg-25 Mg Tablet 1 CAP PO HS Tim Mathur Nov 05, 2017 17:08
[2017-11-07] MEDS ORDERED: PT OWN MED: Exenatide Pen Inj (Bydureon Pen Inj) 2 MG SQ SCH (10:00)
== END 2017-11-05 13:33 | disposition home or self-care (01) | DRG 470 ==
LOC: HSDI 05:30 → N06B 16:57
PROVIDERS: ADMIT Orthopaedic Surgery; ATTEND Orthopaedic Surgery
PROC: 3E0T3BZ Introduction of Anesthetic Agent into Peripheral Nerves and Plexi, Percutaneous Approach (ICD-10-PCS; 2017-11-03)
PROC: 0SRD0J9 Replacement of Left Knee Joint with Synthetic Substitute, Cemented, Open Approach (ICD-10-PCS; principal; 2017-11-03 08:25)
DX: M17.12 Unilateral primary osteoarthritis, left knee (principal); E11.40 Type 2 diabetes mellitus with diabetic neuropathy, unspecified; I95.9 Hypotension, unspecified; I10 Essential (primary) hypertension; M25.762 Osteophyte, left knee; E78.5 Hyperlipidemia, unspecified; E03.9 Hypothyroidism, unspecified; E11.65 Type 2 diabetes mellitus with hyperglycemia; Z79.84 Long term (current) use of oral hypoglycemic drugs; Z88.0 Allergy status to penicillin; Z88.5 Allergy status to narcotic agent
CPT/HCPCS: 73560; 82948; 85027; 86850; 86900; 86901; 94150; C1776; C9290; J0690; J0735; J1100; J1580; J1650; J1815; J1885; J2175; J2250; J2270; J2795; J3370; J7030; J7050; J7120; L1830